=== PATIENT | female | born 1975 | race Caucasian/White ===

== ENCOUNTER 2016-05-30 21:02 | Emergency (ER) | payer OTHER ==
--- NOTE | ~2016-05-30 | EKG ---
PATIENT: TYREL FUENTES UNIT #: [id number] Ventricular Rate: 94 BPM Atrial Rate: 94 BPM P-R Interval: 142 ms QRS Duration: 100 ms Q-T Interval: 372 ms QTC Calculation(Bezet): 465 ms P Rainbow: 74 degrees Calculated R Rainbow: 49 degrees Calculated T Rainbow: 58 degrees Diagnosis Line: Normal sinus rhythm Diagnosis Line: Possible Left atrial enlargement Diagnosis Line: Incomplete right bundle branch block Diagnosis Line: Borderline ECG Diagnosis Line: When compared with ECG of 13-AUG-2013 11:39, Diagnosis Line: No significant change was found Diagnosis Line: Confirmed by SHUN BRICE MD ([id number]) on 06/01/2016 Diagnosis Line: 11:00:49 PM INTERPRETING MD: BABS MCKEON
--- NOTE | ~2016-05-30 | CR151 ---
[facility] A Service of [facility] RADIOLOGY TEXT RESULTS PATIENT: TYREL FUENTES LOCATION: [facility] : 73 UNIT #: [id number] AGE: [address]: Rey Garcia MD SEX: F ORDER DR: [id number] [facility] [address] [place], [place] [address] [id number] E MR#: [id number] Acc #: [id number] NAME: TYREL FUENTES. : 1975 SEX: F STUDY DATE/TIME: 05/30/2016 21:34 UNIT: LISA ROOM: STUDY DESCRIPTION: CR Hip Min 2 Views Rt Attending Physician: Rey Garcia M.D. Ordering Physician: Rey Garcia M.D. Primary Care Physician: [facility] MEDICAL IMAGING REPORT This report is preliminary unless electronic signature is present EXAM Right hip and pelvis, 05/30/2016 HISTORY Pain in right hip after a fall today. COMMENT Frontal view of the pelvis and frog-leg view of the right hip are reviewed. Pelvis film performed twice because there was an artifact on the first film. Comparison is from 04/25/2013. There is a stent graft present, evidence of a hernia repair and a clip in the right pelvis. There is no acute fracture or dislocation appreciated. 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 IMPRESSION No acute fracture, dislocation or radiopaque foreign body right hip or pelvis. Dictated by... Ewa Valladares M.D. THIS IS AN ELECTRONICALLY VERIFIED REPORT Ewa Valladares M.D. at 05/31/2016 10:25 AM GREGORY/adina TD: 05/31/2016 05:09 JOB #: [id number] [facility] A Service of [facility] RADIOLOGY TEXT RESULTS PATIENT: TYREL FUENTES LOCATION: [facility] : 73 UNIT #: [id number] AGE: [address]: Rey Garcia MD SEX: F ORDER DR: MEDICAL IMAGING REPORT Page 1 of 1 COPY
--- NOTE | ~2016-05-30 | CR127 ---
[facility] A Service of [facility] RADIOLOGY TEXT RESULTS PATIENT: TYREL FUENTES LOCATION: [facility] : 73 UNIT #: [id number] AGE: [address]: Rey Garcia MD SEX: F ORDER DR: [id number] [facility] [address] [place], [place] [address] [id number] E MR#: [id number] Acc #: [id number] NAME: TYREL FUENTES. : 1975 SEX: F STUDY DATE/TIME: 05/30/2016 21:29 UNIT: [facility] ROOM: STUDY DESCRIPTION: CR Foot Complete Min 3 View Rt Attending Physician: Rey Garcia M.D. Ordering Physician: eRy Garcia M.D. Primary Care Physician: [facility] MEDICAL IMAGING REPORT This report is preliminary unless electronic signature is present EXAM Foot 3 views right, 05/30/2016 HISTORY Pain, dizziness, headache, fell. Foot pain after a fall. COMMENT 3 views of the right foot are reviewed. No prior. FINDINGS There is a small plantar calcaneal spur. There is no acute fracture, dislocation or radiopaque foreign body suspected. Please correlate with sight of tenderness clinically. IMPRESSION Small plantar calcaneal spur, otherwise negative. Dictated by... Ewa Valladares M.D. THIS IS AN ELECTRONICALLY VERIFIED REPORT Ewa Valladares M.D. at 05/31/2016 10:25 AM Kimberly TD: 05/31/2016 05:02 JOB #: [id number] MEDICAL IMAGING REPORT Page 1 of 1 COPY
--- NOTE | ~2016-05-30 | CR72 ---
[facility] A Service of [facility] & [facility] RADIOLOGY TEXT RESULTS PATIENT: TYREL FUENTES LOCATION: [facility] : 73 UNIT #: [id number] AGE: [address]: Rey Garcia MD SEX: F ORDER DR: [id number] [facility] [address] [place], [place] [address] [id number] E MR#: [id number] Acc #: [id number] NAME: TYREL FUENTES. : 1975 SEX: F STUDY DATE/TIME: 05/30/2016 21:32 UNIT: [facility] ROOM: STUDY DESCRIPTION: CR Chest Single View Portable Attending Physician: Rey Garcia M.D. Ordering Physician: Rey Garcia M.D. Primary Care Physician: [facility] MEDICAL IMAGING REPORT This report is preliminary unless electronic signature is present EXAM Single view chest, 05/30/2016 HISTORY Pain, dizziness, headache, loss of vision, left arm numbness after a fall today. COMMENT Single frontal portable view of the chest timed 21:32 on 05/30/2016 compared to 08/03/2013. Heart size is normal. No acute-appearing parenchymal infiltrate, acute congestive failure, pleural effusion. IMPRESSION No active disease. Dictated by... Ewa Valladares M.D. THIS IS AN ELECTRONICALLY VERIFIED REPORT Ewa Valladares M.D. at 05/31/2016 10:25 AM GREGORY/adina TD: 05/31/2016 05:06 JOB #: [id number] MEDICAL IMAGING REPORT Page 1 of 1 COPY
[~2016-05-30 21:02] MED LIST: ALBUTEROL17 GM; ALBUTEROL17 GM INH; AZITHROMYCIN250 MG; CIPRO PO; CLEOCIN HCL150 MG PO; CLINDAMYCIN HCL1 GM PO; FLECTOR1 EACH PO; IBUPROFEN800 MG; KEFLEX PO; KEFLEX500 M1 PO; LEVAQUIN750 MG PO; METRONIDAZOLE PO; MOBIC; PREDNISONE PO; PREVACID PO; PYRIDIUM PO; SINGULAIR; TALWIN NX TABLE1 TAB PO; TESSALON PERLE100 M1; TOPAMAX; TRAZODONE; ULTRAM PO; VICODIN 5/1 TAB 5/50; VICODIN ES 7.51 EAC1 PO; VOLTAREN50 MG PO; ZANAFLEX; ZANAFLEX4 M1 PO
[2016-05-30 22:15] LABS: BASOPHIL# 0.1 X10e3 (0-0.3); BASOPHIL% 0.8 % (0-2.5); EOSINOPHIL# 0.1 X10e3 (0-0.7); HEMATOCRIT 42.5 % (35.0-45.0); HEMOGLOBIN 13.9 gm/dL (12.0-16.0); LYMPHOCYTE# 2.6 X10e3 (1.0-3.5); LYMPHOCYTE% 37.1 % (17.0-45.0); MEAN CORPUSCULAR HEMOGLOBIN 29.5 PG (28-34); MEAN CORPUSCULAR HGB CONC 32.8 g/dL (30-36); MEAN PLATELET VOLUME 10.1 FL (6.5-11.5); MONOCYTE# 0.6 X10e3 (0-1.0); MONOCYTE% 8.4 % (3.0-12.0); NEUTROPHIL# 3.7 X10e3 (1.5-7.1); NEUTROPHIL% 52.7 % (40-75); PLATELET COUNT 185 X10e3 (140-420); RED BLOOD COUNT 4.73 X10e (3.90-5.30); RED CELL DISTRIBUTION WIDTH 14.5 % (11.0-15.5); WHITE BLOOD COUNT 7.1 X10e3 (4.0-10.5)
[2016-05-30 22:18] LABS: POC - CKMB <1.0 ng/mL (0.0-7.9); POC - TROPONIN <0.05 ng/mL (<=0.05)
[2016-05-30 22:22] LABS: DIFF IND NO
[2016-05-30 22:39] LABS: PARTIAL THROMBOPLASTIN TIME 24.5 SECONDS (23.5-31.3); PROTHROMBIN TIME (PATIENT) 10.7 SECONDS (9.6-11.5)
[2016-05-30 22:53] LABS: ALBUMIN SERUM 3.9 g/dL (3.5-5.0); ALKALINE PHOSPHATASE 62 U/L (32-92); ALT (SGPT) 29 U/L (10-40); AST (SGOT) 21 U/L (10-42); BILIRUBIN, DIRECT 0.1 mg/dL (0.0-0.2); BILIRUBIN,INDIRECT 0.6 mg/dL (0.0-0.9); BILIRUBIN,TOTAL 0.7 mg/dL (0.2-2.0); BLOOD UREA NITROGEN 18 mg/dL (9-23); CALCIUM SERUM 9.8 mg/dL (8.4-10.2); CARBON DIOXIDE 24 mmol/L (22-31); CHLORIDE 107 mmol/L (100-111); GLUCOSE FASTING 92 mg/dL (70-110); POTASSIUM 3.7 mmol/L (3.5-5.1); PROTEIN TOTAL SERUM 6.9 g/dL (6.0-8.3); SODIUM 139 mmol/L (135-145)
[2016-05-30 23:01] LABS: ALCOHOL BLOOD <5 mg/dL (0)
[2016-07-04] MEDS ORDERED: MOBIC (21:39)
== END 2016-05-30 23:00 | disposition home or self-care (01) ==
LOC: CED 21:02
PROVIDERS: Emergency Medicine
DX: R55 Syncope and collapse (principal); R51 Headache; S93.601A Unspecified sprain of right foot, initial encounter; B19.20 Unspecified viral hepatitis C without hepatic coma; K21.9 Gastro-esophageal reflux disease without esophagitis; F17.210 Nicotine dependence, cigarettes, uncomplicated; Z86.718 Personal history of other venous thrombosis and embolism; Z90.49 Acquired absence of other specified parts of digestive tract; Z88.2 Allergy status to sulfonamides; W19.XXXA Unspecified fall, initial encounter
CPT/HCPCS: 36415; 71010; 73502; 73630; 80048; 80076; 82553; 84484; 84703; 85025; 85610; 85730; 93005; 96360; 99284; G0480

== ENCOUNTER 2016-07-04 22:02 | Emergency (ER) | payer OTHER ==
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
--- NOTE | ~2016-07-04 | EKG ---
PATIENT: TYREL FUENTES UNIT #: [id number] Ventricular Rate: 79 BPM Atrial Rate: 79 BPM P-R Interval: 146 ms QRS Duration: 100 ms Q-T Interval: 396 ms QTC Calculation(Bezet): 454 ms P [place]: 75 degrees Calculated R [place]: 63 degrees Calculated T [place]: 67 degrees Diagnosis Line: Normal sinus rhythm Diagnosis Line: Incomplete right bundle branch block Diagnosis Line: Otherwise normal ECG Diagnosis Line: When compared with ECG of 30-MAY-2016 21:56, Diagnosis Line: No significant change was found Diagnosis Line: Confirmed by TIFFANIE RÍOS MD ([id number]) on 07/07/2016 Diagnosis Line: 9:38:28 AM INTERPRETING MD: KHUSHBU MCKEON
== END 2016-07-04 23:39 | disposition left against medical advice (07) ==
LOC: SED 22:02
DX: S06.0X9A Concussion with loss of consciousness of unspecified duration, initial encounter (principal); S20.211A Contusion of right front wall of thorax, initial encounter; B19.20 Unspecified viral hepatitis C without hepatic coma; F17.210 Nicotine dependence, cigarettes, uncomplicated; J45.909 Unspecified asthma, uncomplicated; Z86.73 Personal history of transient ischemic attack (TIA), and cerebral infarction without residual deficits; V49.40XA Driver injured in collision with unspecified motor vehicles in traffic accident, initial encounter
CPT/HCPCS: 70450; 71010; 84703; 93005; 99284